=== PATIENT | female | born 1965 | race Caucasian/White ===

== ENCOUNTER 2018-06-28 06:55 | Observation (INO) | payer OTHER ==
--- NOTE | 2018-06-27 21:48 | PDGENHP ---
History and Physical - Chief Complaint Right Hip Pain - History of Present Illness Diagnosis: 1. Bilateral~Femoroacetabular impingement (ALEXIS) Mixed type,~with~resultant labral tear, (Right worse than Left) 2. Bilateral~Early~Hip~Osteoarthritis 3. Bilateral clinical relative femoral retrotorsion HISTORY OF PRESENT ILLNESS: Joeis a 53 y.o.~~~active female~who I have had the pleasure to consult on today. 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 ~Joe enjoys yoga, walking, soccer (now unable to do any of this to degree she would like to). October of 2016 is when right hip began to be painful and with notable reduced motion. Left hip became painful December of 2017 - similar presentation - pain and stiffness, reduced motion.~No Known history of hip dysplasia. Saw Sports Medicine doc in [place] who did PRP,~prolotherapy,~and~PT for what was thought to be an adductor strain for her right hip in 2016. When~yudith~ moved~to [place]~-~she started PT in [place] who thought she had hip impingement and referred her to [facility]. Dr. River had her get imaging and ordered an image-guided local anesthetic injection into right hip which resulted in improved pain and ROM. Dr. River thought she had ALEXIS and "frozen hip " - recommended labral reconstruction, leave capsule open, possible microfracture, cam/pincer resection, and MARTINEZ - for the right hip. Presentation today is of~lateral~and deep groin~right~hip pain (left similar distribution). ~The hip~does~wake her~at night and does not~click and catch on her. Sitting~can be a real struggle~for her.~Joedoes~report suffering from lower back pain episodes. Joehas not~participated in physical therapy and has~tried other conservative measures including hip injections ~and dry needling.~She~has not~received sufficient symptomatic improvement. Joehas~utilized medication for pain management, including NSAID.~Joehas used medication for intermittently for~months. Joeunderstands that she~has a hip and pelvis problem which should be researched and wishes to get a better understanding of her~hip status, followed by an establishment of a treatment strategy, hoping she~would be able to get back to her~well being active life. History: Past medical history:~~ Patient~has Type I diabetes~(not well controlled - HgbA1c last month 8.3), hypercholesterolemia. Relevant familial history:~None which is relevant~ Past surgical history:~ x 3, TIA 2003, heroidectomy x 2, breast augmentation ~2008 Joedenies problematic issues with general anesthesia in the past. I have reviewed, verified and agree with the past medical, surgical, family and social history. Current Medications:~currently has no medications in their medication list. ALLERGIES:~has no allergies on file. Objective: Physical Examination: Joeis 5~feet 8~inches tall and weighs 158~Lbs. Joeis AAO x3; she~is well- nourished, in NAD. Skin is warm and dry. ~Breathing is non-labored. ~CV with RRR by pulse. Abdomen is soft, NTND. Currently,~she~walks with a normal~gait. Trendelenburg sign is~negative~and proprioception is reduced,~both~sides. She~presents with no~signs of joint laxity. Beightons Score:~0 ~ Lower spine examination is~negative~for sciatic or femoral nerve irritation with negative~SLR &~femoral stretch tests. Range of motion of the spine is normal~for flexion, extension, and rotations, with no~associated pain. Strength, Sensation and pulses are~normal -~bilaterally Ankles and knees exams are~normal~and no~mal-alignment is evident. She~has no leg length discrepancy. Thigh circumference is~symmetric~with no evidence for muscle atrophy~on both~ sides. Hip ROM (degrees): FL ER At 90~hip FL IR At 90~hip FL AB AD EX IR Neutral hip ER Neutral hip R 100 25 20 30 5 5 30 35 L 10 25 15 30 5 5 30 45 Specific hip and pelvis tests: Impingement Test HANANE Roll Add. Longus R +++ Negative Negative +++ L +++ Negative Negative +++ Glut. Med ITB Posterior Imp R Negative 5/5 strength Negative 5/5 strength Negative L +++ 5/5 strength Negative 5/5 strength Negative Squeeze test measured~weak Bony Symphysis pubis is~pain free~to touch while concentric activity of the rectus abdominis, does not~produce pain at its insertion. Ilio Psos specific tests are~negative for pain during cycling for~both hips~and remarkable for nothing further HF has~no pain~both hips. Lateral and posterior~capsule tenderness on the left Greater trochanteric burse is~painful~on both hips.+++ Piriformis tests: FAIR is~negative,~with no~local signs of neuritis related to sciatic nerve. SIJs examination is~normal~with normal~HANANE in relation and local tenderness. Hamstrings tests are~negative~both hips. On a daily basis, the following reflects~Olena's overall total pain: Lateral GT, deep gluteal, anterior/c-shape, adductor, lower back/muscle Imaging: Radiology studies which I have personally reviewed, analyzed and measured are below: XR: AP of the hip and pelvis: Performed in a~good~technique Coccyx to pubic symphysis distance~2.4~cm. 0~degrees caudal [place] Lines are~preserved. No~Pathological signs are seen in the Symphysis Pubis. No~Pathological signs are seen at the Ischial tuberosity. ~ Specific measurements show: NSA~ LCE Sourcil~Angle Sharp's angle Lat. Cam Lat. Pincer C.Over~sign Head~Coverage % ATDmm R 131 41 -5 38 N + 1:00 100 + L 128 45 -8 37 N + 12:30 100 + Pos. wall sign ISS NAD ~~Dysplasia Comments R Negative + 10.6~mm Negative infermoedial OA L Negative Negative 9.3~mm Negative Inferomedial OA Sclerosis Sup. Lat. OA Cysts Joint Space-WBZ Joint Space-Medial R + Negative Negative 3.9~mm 2.8~mm L + Negative Negative 3.7~mm 2.7~mm X Table lateral: Anterior cam lesion is~seen~on both hips. Alpha Angle: ~ Right~59~dergrees Left~59~degrees MRA~shows: 03/30/18 of~L hip shows anterior labral tear with some degeneration. Small pitting cyst of anterolateral femoral head/neck junction. No subchondral edema. MRA from 08/27/17 of~R hip shows anterior labral tear/degeneration with small anterior subchondral cysts. No subchondral edema. Cartilage overall appears intact.~ Impression and plan:Nevaeh Diazis a 53 y.o.~active female~suffering from symptomatic Bilateral~hip pain due to Bilateral~Femoroacetabular impingement (ALEXIS) Mixed type~with labral tearing (Right worse than Left)~and clinical relative femoral retrotorsion~ causing significant disability to her~and altering her~sport and life activities. Physical examination, imaging, and~her~story correspond with the diagnosis mentioned above. We explained that a hip preservation procedure (arthroscopy) might serve as a bridging procedure to try and buy as much time as possible, keeping her chilkoot joint before joint replacement would be unavoidable. With that in mind, the outlined treatment options are: (1) To wait for THR utilizing pain medication, intra articular injections (such as PRP) and lifestyle modification (to avoid or reduce symptoms); (2) THR now as an end-point procedure understanding the life-modifications associated with this procedure regarding activity level; or (3) Hip preservation surgery, specifically hip arthroscopy, to address labral, cartilage and bony pathology (with the possibility of reconstructing the labrum if needed). This last option comes with the understanding of what is outlined above, specifically that this may not work as it usually does with biologically more preserved joints, and that based on her age, gender, and joint characteristics, the results are less reproducible than in younger subjects. Additionally, this surgery does not eliminate the possibility for future THR. If the hip preservation technique fails to yield the expected results, THR can be done promptly. I have explained that because of her age and gender, the results of hip arthroscopy are less reproducible/predictable than with younger patients or male patients of the same age. I reviewed the technical aspects of hip arthroscopy including risks, benefits, and expected course of recovery. Olena understands that hip arthroscopy is a minimally invasive outpatient procedure carried out through small incisions on the outer aspect of the hip joint. During surgery, the labral tear will be identified and either repaired or reconstructed using bone anchors and suture material. Additionally, any excessive bone will be removed with a high-speed yokasta to reshape the hip joint and restore normal anatomy. Risks include infection, bleeding, injury to nearby nerves or vessels, stiffness, persistent pain, instability, venous thromboembolic disease, and traction related complications including temporary foot numbness. Rarely, revision surgery may be required to address these problems. Overall recovery takes approximately 4 8 months depending on the extent of damage and degree of repair. In the event that the labral tissue quality is inadequate for successful repair and healing, Olena understands that a labral reconstruction will be performed. This procedure entails placing a cadaver tissue graft within the hip joint and stabilizing it with bone anchors to build a new labrum. The overall recovery time for labral reconstruction is similar to that of labral repair, although the surgical procedure takes longer to perform. She is a candidate for bilateral hip arthroscopy with the knowledge that we would have to just to one side if we ended up needing to do microfracture on her first side.~ Olena~will review the info presented. In order to obtain more detailed information regarding the alignment, orientation, and shape of the bony hip and pelvis I will order a CT scan to be performed. The results of the CT scan, including femoral torsion and acetabular version measured values and 3D images, will aid me in deciding on the best treatment strategy and surgical pre-planning. Olena~is happy with this plan. I have also supplied~her~with handouts, outlining the expected surgical treatment and rehab involved. I wish~Joeall the best, ~~ Vicenta Hazel MD History Information - Allergies/Home Medication List Allergies/Adverse Reactions: No Known Allergies Allergy (Unverified 06/15/18 14:05) Home Medications: Aleve PRN 06/15/18 [Last Taken Unknown] Atorvastatin Calcium DAILY 06/15/18 [Last Taken Unknown] Axert PRN 06/15/18 [Last Taken Unknown] Herbals/Supplements -Info Only DAILY 06/15/18 [Last Taken Unknown] Humalog DAILY 06/15/18 [Last Taken Unknown] Lamictal HS 06/15/18 [Last Taken Unknown] Restasis Opht Drops(*) BID 06/15/18 [Last Taken Unknown] Topamax HS 06/15/18 [Last Taken Unknown] Trileptal BID 06/15/18 [Last Taken Unknown] Victoza 3-Td DAILY 06/15/18 [Last Taken Unknown] I have personally reviewed and updated: medical history - Social History Smoking Status: Never smoked Review of Systems Review of Systems: Physical Exam Physical Exam:
[2018-06-28] MEDS ORDERED: PREGABALIN 150 MG CAP PO ONE (07:11)
[2018-06-28] MEDS ORDERED: ACETAMINOPHEN 500 MG TAB PO ONE (07:11)
[2018-06-28] MEDS ORDERED: ceFAZolin 2 GM/DEXTROSE 100 ML IV ONE (07:11)
[2018-06-28] MEDS ORDERED: LR 1,000 ML IV ONE (07:13)
[2018-06-28] MEDS ORDERED: BUPIVACAINE 0.25% 30 ML SDV ONE (07:31)
[2018-06-28] MEDS ORDERED: EPINEPHrine 30 MG/30 ML MDV (0.1 MG/0.1 ML) ONE (07:31)
[2018-06-28] MEDS ORDERED: MIDAZOLAM 2 MG/2 ML VIAL IVP ONE (07:58)
--- NOTE | 2018-06-28 08:06 | PDANEPAE ---
ANE History of Present Illness 53 year old with bilateral ALEXIS. Right side to start, posible bilateral ANE Past Medical History - Cardiovascular History Hx Hypertension: No Hx Arrhythmias: No Hx Chest Pain: No Hx Coronary Artery / Peripheral Vascular Disease: No Hx CHF / Valvular Disease: No Hx Palpitations: No - Pulmonary History Hx COPD: No Hx Asthma/Reactive Airway Disease: No Hx Recent Upper Respiratory Infection: No Hx Oxygen in Use at Home: No Hx Sleep Apnea: No Sleep Apnea Screening Result - Last Documented: Negative - Neurologic History Hx Cerebrovascular Accident: No Hx Seizures: No Hx Dementia: No - Endocrine History Hx Diabetes: Yes Endocrine History Comment: IDDM/2004. INSULIN PUMP SINCE 2009 - Renal History Hx Renal Disorders: Yes Renal History Comment: HX OF KIDNEY STONES. 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 USUALLY ONCE A MONTH - Other Health History Other Health History: MILD ANEMIA WITHIN THE LAST 6 MONTHS. LIMITED ROM WITH HIPS CAUSING LOWER BACK PAIN - Chronic Pain History Chronic Pain: Yes (HOLLEY HIPS/LOWER BACK) - Surgical History Prior Surgeries: HEMORRHOIDECTOMY X2. LT BREAST BX. T&A. BREAST AUGMENTATION ANE Review of Systems Review of systems is: negative Review of Systems: - Exercise capacity METS (RN): 4 METS ANE Patient History - Allergies Allergies/Adverse Reactions: No Known Allergies Allergy (Unverified 06/15/18 14:05) - Home Medications Home Medications: Aleve PRN 06/15/18 [Last Taken 06/21/18] Atorvastatin Calcium DAILY 06/15/18 [Last Taken 06/28/18] Axert PRN 06/15/18 [Last Taken 06/27/18] Herbals/Supplements -Info Only DAILY 06/15/18 [Last Taken 06/27/18] Humalog DAILY 06/15/18 [Last Taken 06/28/18] Lamictal HS 06/15/18 [Last Taken 06/27/18] Restasis Opht Drops(*) BID 06/15/18 [Last Taken 06/28/18] Topamax HS 06/15/18 [Last Taken 06/27/18] Trileptal BID 06/15/18 [Last Taken 06/28/18] Victoza 3-Td DAILY 06/15/18 [Last Taken 06/27/18] - NPO status NPO Since - Liquids (Date): 06/28/18 NPO Since - Liquids (Time): 05:30 NPO Since - Solids (Date): 06/27/18 NPO Since - Solids (Time): 20:00 - Smoking Hx Smoking Status: Never smoked - Alcohol Use Alcohol Use: None - Family Anes Hx Family Anes Hx: none ANE Labs/Vital Signs - Vital Signs Blood Pressure: 116/70 Heart Rate: 58 Respiratory Rate: 16 O2 Sat (%): 99 Height: 172.72 cm Weight: 71.668 kg
[2018-06-28] MEDS ORDERED: PROPOFOL 200 MG/20 ML VIAL ONE (09:01)
[2018-06-28] MEDS ORDERED: fentaNYL 250 MCG/5 ML INJ ONE (09:01)
[2018-06-28] MEDS ORDERED: INSULIN REGULAR HUMAN 100 UNIT/ML UNIT ONE (10:11)
--- NOTE | 2018-06-28 17:33 | POSTOPPROG ---
Post Op Note Date of Operation: 06/28/18 Surgeon: Star Alexander Tool Filer Hand: Dr. Vital Anesthesia: GET(General Endotracheal) Pre-op Diagnosis: Bilateral ALEXIS Post-op Diagnosis: Bilateral ALEXIS Procedure: Bilateral Hip Arthroscopy Inf/Abcess present in the surg proc area at time of surgery?: No EBL: Minimal
[2018-06-28] MEDS ORDERED: PROMETHAZINE HCL 25 MG/ML INJ IVP PRN ×2 (17:49→18:55)
[2018-06-28] MEDS ORDERED: NALOXONE HCL 0.4 MG/ML INJ IVP PRN (17:49)
--- NOTE | 2018-06-28 17:50 | POSTANESTH ---
Post Anesthetic Evaluation Cardiovascular Status: Normal, Stable Respiratory Status: Requires Airway Assist Level of Consciousness/Mental Status: Moderately Sleepy Pain Control: Adequate, Prn Tx Ordered Nausea/Vomiting Control: Adequate, Prn Tx Ordered Complications Possibly Related to Anesthesia: None Noted
[2018-06-28] MEDS ORDERED: fentaNYL 100 MCG/2 ML INJ ONE (18:09)
[2018-06-28] MEDS: fentaNYL 100 MCG/2 ML INJ IVP PRN ×3 (18:16→19:12)
[2018-06-28] MEDS ORDERED: HYDROmorphONE/DILAUDID 1 MG/ML INJ ONE (18:20)
[2018-06-28] MEDS: HYDROmorphONE/DILAUDID 1 MG/ML INJ IVP PRN ×5 (18:27→20:53)
[2018-06-28] MEDS ORDERED: ONDANSETRON 4 MG/2 ML VIAL ONE ×2 (18:44→20:12)
[2018-06-28] MEDS ORDERED: HYDROmorphONE/DILAUDID 1 MG/ML INJ IVP PRN (18:55)
[2018-06-28] MEDS ORDERED: ONDANSETRON 4 MG/2 ML VIAL IVP PRN (18:55)
[2018-06-28] MEDS ORDERED: DIAZEPAM 2 MG TAB PO PRN (19:00)
[2018-06-28] MEDS: ONDANSETRON 4 MG/2 ML VIAL IVP PRN ×2 (19:08→20:13)
[2018-06-28] MEDS ORDERED: D5W 1/2 NS 500 ML IV ONE (20:00)
[2018-06-28] MEDS ORDERED: D5W 1/2 NS 1,000 ML IV ONE (20:00)
[2018-06-28] MEDS ORDERED: D5W LR 1,000 ML IV SCH (21:15)
[2018-06-28] MEDS ORDERED: SUMAtriptan 6 MG/0.5 ML VIAL SC ONE (21:35)
[2018-06-28] MEDS ORDERED: OXcarbazepine 300 MG TAB PO SCH (22:15)
[2018-06-28] MEDS ORDERED: TOPIRAMATE 25 MG TAB PO SCH (23:06)
[2018-06-28] MEDS ORDERED: lamoTRIgine 100 MG TAB PO SCH (23:06)
[2018-06-28] MEDS: NAPROXEN SODIUM 220 MG TAB PO SCH (23:16)
--- NOTE | 2018-06-28 23:17 | HOSPPROG ---
Hospitalist Progress Note Assessment/Plan: CC: I am asked by Dr. Saxena of Orthopedics to at evaluate and assist in the care of this patient who is having hypoglycemia coming out of the operating room for any 8 hr surgery on both hips. HISTORY: This patient has history of bilateral hip pain unresponsive to multiple nonsurgical measures. She comes in and has had surgery now on both hips today with an 8 hr procedure. Coming out of the OR am called by the surgical team as the patient has had quite a bit of fluctuation of sugars through her course and has been hypo glycemic most recently. She has type 1 diabetes on an insulin pump and is well uses daily Victoza. She did not use the Victoza this morning. Her insulin pump was turned off during her surgery. I am seeing the patient in the recovery room where she is awake. She has some pain at both hips, and is getting a migraine headache now. She has had some nausea but has not vomited. She has not really been able to eat in the recovery room. She has no chest pain shortness of breath focal neurologic symptoms. She has been receiving IV dextrose through the last couple hours of her surgery and in the recovery room before I saw her just completed a 500 mL bolus of D5 for low sugar. Her sugar now is running in the 100-120 range over the last hour. I have started her on a D5 infusion at 75 mL/hour. Patient does have migraine and is getting severe at this time. Normally she takes Axert for this, though we do not have that medicine here and she does not her home medicines with her. There are no focal neurologic symptoms going along with that. She has received some antiemetics here. The patient also takes medications for a number of other illnesses including bipolar disorder for which she is on 4 medications. ROS: A comprehensive 10 system review revealed no other significant findings PAST MEDICAL HISTORY: Diabetes mellitus type 1, uses insulin pump, most recent hemoglobin A1 8.3 Bipolar disorder Migraine headaches TIAs Hyperlipidemia Breast augmentation surgery FAMILY MEDICAL HISTORY: No concerning family illnesses related to her situation here now SOCIAL HISTORY: She is a retired neurologist No tobacco or alcohol lives with her MEDICATIONS: The patients list has been reconciled by our clinical pharmacist in the EMR. I have reviewed the list and ordered appropriate medicines. PHYSICAL EXAMINATION: Vital Signs: All stable without fever Hop Trainer: Sinus Examination: General: Fairly groggy but awake, oriented, good mentation, looks fairly uncomfortable from headache and hip pain as well as her nausea Skin: warm, dry, good color, no rash HEENT: normal Neck: no mass or jvd Resps: relaxed Lungs: clear breath sounds Heart: regular, no murmur Abdomen: soft, nondistended, nontender, +BS, no mass Neurologic: normal speech/language, normal machine container washer, no focal weakness IV site: looks normal LABORATORY DATA: As mentioned above sugars have mostly been fairly low over the last few hours and while I am visiting with her currently 100 ASSESSMENT: * hypoglycemia in a surgical patient with type 1 diabetes, with no evidence at this time of complications of the hypoglycemia but currently requiring ongoing dextrose infusion * Patient currently not eating due to pain nausea and no appetite after surgery * migraine headache at this time * typical postop pain of her hips after surgery * bipolar disorder on 3 anti epileptic medications for control of it, will require those medicines to avoid sudden seizures from withdrawal; bipolar disorder in good control currently with this regimen * history of TIA, no acute neurologic changes at this time PLANS: * Continue dextrose infusion until her sugars start to come up in were she is eating adequately * Follow sugars closely with fingersticks; goal did have sugars less than 180 without low sugars * Antiemetics as needed * I have ordered a dose of Imitrex for her now as we do not have her the migraine medicine on our formulary * I have ordered all of her other medicines as appropriate from home I have reviewed the patient's case in detail with Mr Camarillo of orthopedics Objective: Vital Signs Temp Pulse Resp BP Pulse Ox 36.4 C 79 16 116/72 99 06/28/18 22:07 06/28/18 22:07 06/28/18 22:07 06/28/18 22:07 06/28/18 22:07 06/27/18 06/28/18 06/29/18 06:59 06:59 06:59 Intake Total 4500 Output Total 1850 Balance 2650
[2018-06-29] MEDS ORDERED: SUMAtriptan 6 MG/0.5 ML VIAL SC ONE (01:56)
[2018-06-29] MEDS ORDERED: NS 1,000 ML IV ONE (04:43)
[2018-06-29] MEDS ORDERED: ACETAMINOPHEN 500 MG TAB PO ONE (04:43)
[2018-06-29] MEDS ORDERED: D50W 25 GM/50 ML SYR IVP PRN (08:28)
[2018-06-29] MEDS ORDERED: INSULIN PUMP, PATIENT OWN 1 EA MISC SCH (08:30)
[2018-06-29] MEDS ORDERED: CHOLECALCIFEROL VIT D3 1,000 UNITS TAB PO SCH (09:00)
[2018-06-29] MEDS ORDERED: OXcarbazepine 300 MG TAB PO SCH ×3 (09:00→21:00)
[2018-06-29] MEDS ORDERED: LIRAGLUTIDE 0.6 MG SQ SCH (09:00)
[2018-06-29] MEDS ORDERED: cycloSPORINE 0.05% 30 DROPERETTE/BOX EACHEYE SCH (09:00)
[2018-06-29] MEDS ORDERED: ATORVASTATIN CALCIUM 20 MG TAB PO SCH (09:00)
[2018-06-29] MEDS ORDERED: TOPIRAMATE 100 MG TAB PO ONE (09:30)
[2018-06-29] MEDS ORDERED: lamoTRIgine 100 MG TAB PO ONE (09:30)
[2018-06-29] MEDS ORDERED: NAPROXEN SODIUM 220 MG TAB PO ONE (09:30)
[2018-06-29] MEDS: NAPROXEN SODIUM 220 MG TAB PO SCH ×2 (09:48→15:17)
[2018-06-29] MEDS: oxyCODONE IR 5 MG TAB PO PRN ×2 (10:40→17:15)
--- NOTE | 2018-06-29 11:05 | HOSPPROG ---
Hospitalist Progress Note Assessment/Plan: Olena Still is a 53 y/o female who had surgery on her hips bilaterally. Hospitalist team was asked to evaluate her in regards to hypoglycemia. Today is my first encounter w the patient, chart reviewed. * hypoglycemia in a surgical patient with type 1 diabetes -resolved -patient now using insulin pump -eating and drinking * migraine headache -prn Imitrex -having a bad headache this morning -trial of Aleve and caffeine * bilateral hip issues -s/p bilateral hip athroscopy * bipolar disorder -home meds resumed * history of TIA, no acute neurologic changes at this time *plan: dc per orthopedics Subjective: Olena is c/o bad headache, typical of her migraines. Objective: Vital Signs Temp Pulse Resp BP Pulse Ox 37.1 C 92 16 106/72 94 06/29/18 08:09 06/29/18 08:09 06/29/18 08:09 06/29/18 08:09 06/29/18 08:09 06/28/18 06/29/18 06/30/18 05:59 05:59 05:59 Intake Total 4500 518 Output Total 4525 1500 Balance -25 -982 - Physical Exam Constitutional: uncomfortable, No not in pain (headache) Ears, Nose, Mouth, Throat: hearing normal Cardiovascular: regular rate and rhythym Respiratory: no respiratory distress Skin: warm Neurologic: AAOx3 Psychiatric: interacting appropriately ICD10 Worksheet Patient Problems: Problems Problem Status Onset Hypoglycemia due to type 1 diabetes mellitus Acute - ICD10 Problem Qualifiers (1) Hypoglycemia due to type 1 diabetes mellitus
[2018-06-29] MEDS ORDERED: [UNRECOGNIZED DRUG - OTHER] PO PRN (11:29)
[2018-06-29 15:55] VITALS: BP 102/63
[2018-06-29] MEDS ORDERED: MELATONIN 3 MG TAB PO SCH (21:00)
== END 2018-06-29 17:35 | disposition home or self-care (01) ==
LOC: FSGY 06:55 → F3N 18:55
PROVIDERS: ADMIT Orthopaedic Surgery Sports Medicine; ATTEND Orthopaedic Surgery Sports Medicine
DX: M25.851 Other specified joint disorders, right hip (principal); M25.852 Other specified joint disorders, left hip; E11.9 Type 2 diabetes mellitus without complications; Z79.4 Long term (current) use of insulin; Z96.41 Presence of insulin pump (external) (internal)
CPT/HCPCS: 29914; 29916; 76001; 97116; 97161; G0378; C1713; J0171; J0690; J1170; J1200; J1815; J2250; J2405; J2704; J3010; J3030

== ENCOUNTER → 2018-07-27 | Outpatient (CLI) | payer OTHER | LOC: BMCIMAGING 15:29 | PROVIDERS: ATTEND Internal Medicine | DX: R09.89 Other specified symptoms and signs involving the circulatory and respiratory systems (principal); I80.8 Phlebitis and thrombophlebitis of other sites ==

== ENCOUNTER → 2018-08-03 | Outpatient (CLI) | payer OTHER | LOC: BMCIMAGING 15:13 | PROVIDERS: ATTEND Internal Medicine | DX: R60.9 Edema, unspecified (principal); Z80.41 Family history of malignant neoplasm of ovary ==

== ENCOUNTER → 2019-02-22 | Outpatient (CLI) | payer OTHER | LOC: FIMAGING 12:48 | PROVIDERS: ATTEND Obstetrics & Gynecology | DX: Z12.31 Encounter for screening mammogram for malignant neoplasm of breast (principal); Z13.820 Encounter for screening for osteoporosis; M85.89 Other specified disorders of bone density and structure, multiple sites; Z78.0 Asymptomatic menopausal state ==